=== PATIENT | female | born 1990 | race Caucasian/White ===

== ENCOUNTER 2016-12-26 15:15 | Emergency (ER) | payer SELFPAY ==
[2016-12-26 15:26] VITALS: BP 127/66; PULSE 89; RESP 16; TEMP 98.2; O2SAT 96
--- NOTE | 2016-12-26 15:39 | C.PDOC ---
History Of Present Illness 26 yr old female presents to ER with complaints of constipation, nausea and loss of appetite. Patient reports her last bowel movement was 3 days ago. States she recently got back from [place]. Denies fever, chest pain, SOB, weakness or numbness. Time Seen by Provider: 12/26/16 15:29 Chief Complaint (Nursing): GI Problem History Per: Patient History/Exam Limitations: no limitations Onset/Duration Of Symptoms: Days Past Medical History Reviewed: Historical Data, Nursing Documentation, Vital Signs Vital Signs: Last Vital Signs Temp 98.2 F 12/26/16 15:21 Pulse 89 12/26/16 15:21 Resp 16 12/26/16 15:21 BP 127/66 12/26/16 15:21 Pulse Ox 96 12/26/16 15:39 - Medical History PMH: No Chronic Diseases, Schizophrenia Surgical History: No Surg Hx Family History: States: No Known Family Hx - Social History Hx Tobacco Use: Yes Hx Alcohol Use: No Hx Substance Use: No - Immunization History Hx Tetanus Toxoid Vaccination: No Hx Influenza Vaccination: No Hx Pneumococcal Vaccination: No Review Of Systems Except As Marked, All Systems Reviewed And Found Negative. Constitutional: Negative for: Fever Cardiovascular: Negative for: Chest Pain Respiratory: Negative for: Shortness of Breath Gastrointestinal: Positive for: Nausea, Constipation Neurological: Negative for: Weakness, Numbness Physical Exam - Physical Exam Appears: Non-toxic, No Acute Distress Skin: Warm, Dry, No Rash Head: Atraumatic, Normacephalic Oral Mucosa: Moist Chest: Symmetrical, No Tenderness Cardiovascular: Rhythm Regular, No Murmur Respiratory: Normal Breath Sounds, No Rales, No Wheezing Extremity: Normal ROM, No Swelling Neurological/Psych: Oriented x3, Normal Speech, Normal Motor ED Course And Treatment O2 Sat by Pulse Oximetry: 96 (RA) Progress Note: Patient evaluated and requested to go home and will follow up at clinic Reassessment Condition: Unchanged Disposition - Disposition Disposition: ELOPEMENT - ER ONLY Disposition Time: 16:00 Condition: GOOD - POA Present On Arrival: None - Clinical Impression Clinical Impression: Constipation - 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 - Scribe Statement The provider has reviewed the documentation as recorded by the Scribe Liza Cullen All medical record entries made by the Scribe were at my direction and personally dictated by me. I have reviewed the chart and agree that the record accurately reflects my personal performance of the history, physical exam, medical decision making, and the department course for this patient. I have also personally directed, reviewed, and agree with the discharge instructions and disposition.
== END 2016-12-26 15:36 | disposition left against medical advice (07) ==
LOC: C.ER 15:15
DX: K59.00 Constipation, unspecified (principal)

== ENCOUNTER 2018-07-05 11:15 | Emergency (ER) | payer MEDICAID ==
[2018-07-05 11:42] VITALS: BP 110/67; PULSE 86; RESP 16; TEMP 98.1; O2SAT 98
--- NOTE | 2018-07-05 11:52 | C.PDOC ---
History Of Present Illness 28 year old female presents to the ED for evaluation of left leg pain s/p slip injury sustained at 9am today. The patient reports slipping and having her left leg caught between a train and the platform for a brief moment. She notes being able to remove her left leg and walk with no limitations. Denies head injury, other injuries, other medical problems, and any other associated symptoms. Time Seen by Provider: 07/05/18 11:44 Chief Complaint (Nursing): Lower Extremity Problem/Injury History Per: Patient History/Exam Limitations: no limitations Onset/Duration Of Symptoms: Other Current Symptoms Are (Timing): Still Present Past Medical History Reviewed: Historical Data, Nursing Documentation, Vital Signs Vital Signs: Last Vital Signs Temp 98.1 F 07/05/18 11:25 Pulse 86 07/05/18 11:25 Resp 16 07/05/18 11:25 BP 110/67 07/05/18 11:25 Pulse Ox 98 07/05/18 11:25 - Medical History PMH: Schizophrenia Denies: Diabetes, Hepatitis, HIV, HTN, Seizures, Sexually Transmitted Disease Family History: States: Unknown Family Hx - Social History Hx Tobacco Use: Yes Hx Alcohol Use: No Hx Substance Use: No - Immunization History Hx Tetanus Toxoid Vaccination: No Hx Influenza Vaccination: No Hx Pneumococcal Vaccination: No Review Of Systems Except As Marked, All Systems Reviewed And Found Negative. Musculoskeletal: Positive for: Other (left leg pain. ) Physical Exam - Physical Exam Appears: Non-toxic, No Acute Distress Skin: Normal Color, Warm, Dry Head: Atraumatic, Normacephalic Eye(s): bilateral: Normal Inspection, PERRL, EOMI Nose: Normal Oral Mucosa: Moist Neck: Supple Chest: Symmetrical Cardiovascular: Rhythm Regular, No Murmur Respiratory: Normal Breath Sounds, No Rales, No Rhonchi, No Wheezing Gastrointestinal/Abdominal: Normal Exam, Soft, No Tenderness Extremity: Tenderness (to the left lateral mid-thigh. ), No Deformity (no gross deformities. ), Swelling (to left lateral mid-thigh. ), No Other (no stents compartment.) Extremity: Bilateral: Other (equal dp/pt pulses. ) Pulses: Left Dorsalis Pedis: Normal, Right Dorsalis Pedis: Normal Neurological/Psych: Oriented x3, Normal Speech, Normal Motor, Normal Sensation, Normal Reflexes ED Course And Treatment O2 Sat by Pulse Oximetry: 98 (RA) Pulse Ox Interpretation: Normal - Other Rad LT Ankle x-ray X-Ray: Interpreted by Me, Viewed By Me Interpretation: X-ray: preliminary reading: negative Medical Decision Making Medical Decision Making: Assessment: Contusion Plan: -Motrin -HCG urine. -LT Femur x-ray Progress/Update: X-ray: preliminary reading: negative Patient stable for discharge home. Advised to follow up with family doctor within 2 days. Prescribed Naproxen. Disposition - Disposition Referrals: at [facility] [Outside] Disposition: HOME/ ROUTINE Disposition Time: 11:51 Condition: STABLE Additional Instructions: follow up with medical clinic within 2 days call to make an appointment take medication as needed for pain rest, ice, elevate leg return to hospital if symptoms worsens or progress Prescriptions: Naproxen [Naprosyn] 500 mg PO BID PRN #16 tab PRN Reason: Pain, Moderate (4-7) Instructions: Contusion (DC) Forms: General Discharge Instructions, [facility] (Chinese), Work Excuse - Clinical Impression Clinical Impression: Contusion - Scribe Statement The provider has reviewed the documentation as recorded by the Scribe (Geetha Santana) Provider Attestation: All medical record entries made by the Scribe were at my direction and personally dictated by me. I have reviewed the chart and agree that the record accurately reflects my personal performance of the history, physical exam, medi taniya decision making, and the department course for this patient. I have also personally directed, reviewed, and agree with the discharge instructions and disposition.
--- NOTE | 2018-07-05 14:26 | RAD ---
Date of service: 07/05/2018 PROCEDURE: Left Femur Radiographs. HISTORY: fall COMPARISON: None. TECHNIQUE: AP and Lateral Radiographs of the left femur. FINDINGS: FEMUR: Bone alignment and mineralization are normal. There is no acute displaced fracture or bone destruction. SOFT TISSUES: Normal. OTHER FINDINGS: None. IMPRESSION: No acute fracture or dislocation.
== END 2018-07-05 12:02 | disposition home or self-care (01) ==
LOC: C.ER 11:15
DX: S80.12XA Contusion of left lower leg, initial encounter (principal); W23.1XXA Caught, crushed, jammed, or pinched between stationary objects, initial encounter; Y92.522 Railway station as the place of occurrence of the external cause